=== PATIENT | female | born 1940 | race Caucasian/White ===

== ENCOUNTER 2016-09-28 08:38 | Emergency (ER) | payer OTHER ==
[~2016-09-28] VITALS: Ht 165.1 cm; Wt 63.5 kg
[~2016-09-28 08:38] MED LIST: ACETAMINOPHEN-1 EAC1 PO; ALDACTONE25 MG PO; AMLODIPINE BESYL5 MG PO; CEFDINIR300 MG PO; EFFEXOR XR75 MG PO; ONDANSETRON HCL4 M2 PO; PREVACID30 MG PO; SYMBICORT160 MCG/4. INH
[2016-09-28] MEDS ORDERED: FLONASE 0.05%50 MCG NASAL (08:47)
[2016-09-28] MEDS ORDERED: SYMBICORT160 MCG/4. INH (08:47)
[2016-09-28] MEDS ORDERED: ONE-A-DAY WOMENS PO (08:48)
[2016-09-28] MEDS ORDERED: MAGOX 400400 MG PO (08:48)
[2016-09-28] MEDS ORDERED: CALCIUM 600 +1 EAC1 PO (08:48)
[2016-09-28] MEDS ORDERED: NAPROSYN500 MG PO (10:35)
[2016-09-28] MEDS ORDERED: SENOKOT-S1 TA1 PO (10:35)
[2016-09-28] MEDS ORDERED: NORCO 5-325 TA1 EACH PO (10:35)
== END 2016-09-28 12:20 | disposition home or self-care (01) ==
LOC: ER 08:38
DX: S22.42XA Multiple fractures of ribs, left side, initial encounter for closed fracture (principal); I10 Essential (primary) hypertension; J45.909 Unspecified asthma, uncomplicated; F41.9 Anxiety disorder, unspecified; Z90.710 Acquired absence of both cervix and uterus; Z98.890 Other specified postprocedural states; F10.99 Alcohol use, unspecified with unspecified alcohol-induced disorder; Z88.8 Allergy status to other drugs, medicaments and biological substances; W01.0XXA Fall on same level from slipping, tripping and stumbling without subsequent striking against object, initial encounter; Y93.89 Activity, other specified; Y92.002 Bathroom of unspecified non-institutional (private) residence as the place of occurrence of the external cause; Y99.8 Other external cause status